=== PATIENT | female | born 1965 | race Asian ===

== ENCOUNTER → 2016-11-14 | Outpatient (CLI) | payer MEDICAID | LOC: BRMIMAGING 10:43 | PROVIDERS: ATTEND Registered Nurse | DX: Z12.31 Encounter for screening mammogram for malignant neoplasm of breast (principal) | CPT/HCPCS: G0202 ==

== ENCOUNTER → 2016-12-05 | Outpatient (CLI) | payer MEDICAID | LOC: BRMIMAGING 11:53 | PROVIDERS: ATTEND Physician Assistant | DX: M19.041 Primary osteoarthritis, right hand (principal); M25.541 Pain in joints of right hand | CPT/HCPCS: 73130-PO ==